=== PATIENT | female | born 1995 | race Two or more races ===

== ENCOUNTER 2020-07-15 03:13 | Emergency (ER) | payer OTHER ==
[~2020-07-15] VITALS: Ht 167.6 cm; Wt 81.6 kg
[2020-07-15] MEDS ORDERED: DiphenhydrAMINE 50mg/ml Inj IM ONE (03:30)
[2020-07-15] MEDS ORDERED: Haloperidol 5mg/ml Inj IM ONE (03:30)
[2020-07-15] MEDS ORDERED: LORazepam Inj 2mg/ml 1ml IM ONE (03:30)
--- NOTE | 2020-07-15 03:35 | NUR ---
ED Nurse Note: Recieved pt BIBA from home, here with c/o etoh intoxication with increased anxiety and agitation, pt is on gurney awake and alert, yelling and screaming very loud, restless and agitated on gurney, unable to appropriately answer questions, strong etoh odor noted on breath, pt is too agitated for IV line placement or labs, MD aware, will medicate pt IM and return when pt more calm for labs, etc.
--- NOTE | 2020-07-15 04:25 | NUR ---
ED Nurse Note: Returned from break, meds given effective, pt sleeping, IV line placed and labs drawn, pt straight cath for urine specimen, will continue to closely monitor, pt sleeping.
[2020-07-15 05:22] LABS: EOSINOPHILS % (AUTO) 0.1 % (0.0-3.0); HEMATOCRIT 41.7 % (37.0-47.0); HEMOGLOBIN 13.4 G/DL (12.0-16.0); LYMPHOCYTES % (AUTO) 25.9 % (20.0-45.0); MEAN CORPUSCULAR VOLUME 94 FL (80-99); MONOCYTES % (AUTO) 6.9 % (1.0-10.0); NEUTROPHILS % (AUTO) 66.1 % (45.0-75.0); PLATELET COUNT 245 K/UL (150-450); RED BLOOD COUNT 4.43 M/UL (4.20-5.40); RED CELL DISTRIBUTION WIDTH 12.8 % (11.6-14.8); WHITE BLOOD COUNT 7.1 K/UL (4.8-10.8)
[2020-07-15 05:43] LABS: APPEARANCE,URINE CLEAR; BILIRUBIN, URINE NEGATIVE (NEGATIVE); COLOR,URINE PALE YELLOW; GLUCOSE, URINE (UA) NEGATIVE (NEGATIVE); KETONES,URINE NEGATIVE (NEGATIVE); LEUKOCYTE ESTERASE ,URINE NEGATIVE (NEGATIVE); NITRITE,URINE NEGATIVE (NEGATIVE); PH,URINE 7 (4.5-8.0); PROTEIN,URINE NEGATIVE (NEGATIVE); UROBILINOGEN,URINE NORMAL MG/DL (0.0-1.0)
[2020-07-15 05:44] LABS: ANION GAP 11 mmol/L (5-15); BLOOD UREA NITROGEN 5 mg/dL (7-18); CALCIUM 8.5 MG/DL (8.5-10.1); CARBON DIOXIDE 24 MMOL/L (21-32); CHLORIDE 110 MMOL/L (98-107); CREATININE 0.8 MG/DL (0.55-1.30); POTASSIUM 3.5 MMOL/L (3.5-5.1); SODIUM 145 MMOL/L (136-145)
--- NOTE | 2020-07-15 05:46 | Emergency Room Report ---
History of Present Illness General Chief Complaint: Alcohol Intoxication Source: Patient Present Illness HPI 25-year-old female brought in by PD not on a hold for aggressive behavior after drinking heavily this evening. According to EMS, patient was agitated and running naked around the house and arguing with her boyfriend. She denies any SI, HI, auditory or visual hallucinations. She denies trauma, headache, neck pain, back pain, or other symptoms. Denies coingestants She is uncooperative with examination. History is limited secondary to altered mental status. The patient's symptoms were gradual onset, severity was moderate, duration since 1 day. Past medical history: Denies Past surgical history: Denies Smoking: Denies Alcohol use: ++ Drug use: Denies Review of systems: CONST: No fevers or chills, No night sweats PULMONARY: No productive cough, No shortness of breath CARDIAC: No chest pain, No palpitations GI: No vomiting, No diarrhea , No melena_or_BRBPR : No dysuria, No hematuria, No discharge NEURO: No new_focal_weakness_or_numbness, No confusion, No vision changes 14 point Review of Systems is otherwise negative except per HPI Physical Exam: GENERAL: Awake_alert_ nontoxic, Spo2 97% on RA -normal. Agitated, screaming profanities in bed. EYES: Extraocular muscles are intact. Conjunctivae clear. Lids without swelling ENT: External nose and ear normal_in_appearance. Oropharynx clear. Head _atraumatic, Moist_oral_mucosa no oropharyngeal trauma NECK: No JVD. No meningismus. No thyromegaly. Supple. Trachea midline no cervical, thoracic, or lumbar step-offs RESP: Normal respiratory effort. Symmetric rise. No stridor. Clear_to_auscultation_No_rales_No_wheezes CARDIAC: Tachycardic rate and regular rhytm. No_significant pedal edema. ABDOMEN: Soft. Nondistended. Nontender_No_rebound_or_guarding. MSK: Normal muscle tone, without rigidity. Extremities without asymmetric deformity or swelling. SKIN: Warm and dry. No visible cyanosis or pallor NEUROLOGIC: Alert, oriented x3. Motor_and_sensation_grossly_intact. No truncal ataxia. Gait_normal Psych: Normal mood and affect, normal judgment and insight - COORDINATION OF CARE Case was discussed with: Patient Any labs and imaging that were ordered were interpreted as part of the medical decision making: Medical Decision Making/Plan: Differential diagnosis includes psychosis, delusions, paranoid schizophrenia, drug abuse, drug intoxication, drug overdose, among others. The patient denies any suicide attempt, overdose, or ingestion. Initially upon arrival, patient was agitated, screaming profanities, and a danger to staff. For this reason she was chemically sedated. They exhibit no signs of any toxic syndrome or drug / alcohol withdrawal. Labs were ordered for evaluation, and results are reassuring with no evidence of occult overdose, or severe metabolic derangement. The patient was observed for a period of time in the ED with serial neurologic exams. Allergies: Coded Allergies: No Known Allergies (Unverified , 07/15/20) COVID-19 Screening Contact w/high risk pt: No Experienced COVID-19 symptoms?: No COVID-19 Testing performed DIRECTOR OF DIRECT MARKETING: No Nursing Documentation-PMH History Of Psychiatric Problem: Yes Physical Exam Vital Signs Date Time Temp Pulse Resp B/P (MAP) Pulse Ox O2 Delivery O2 Flow Rate FiO2 07/15/20 03:01 98.4 110 20 130/98 (109) 97 Room Air Sp02 EP Interpretation: reviewed, normal Medical Decision Making Diagnostic Impression: Primary Impression: Acute alcoholic intoxication EKG Diagnostic Results Troponin ordered: No Rhythm Strip Diag. Results Rhythm Strip Time: 05:45 EP Interpretation: yes Rate: 100 Rhythm: NSR, no PVC's, no ectopy Reevaluation Time: 05:45 Last Vital Signs Date Time Temp Pulse Resp B/P (MAP) Pulse Ox O2 Delivery O2 Flow Rate FiO2 07/15/20 04:02 110 20 130/98 97 07/15/20 03:40 Room Air 07/15/20 03:01 98.4 Status: improved Admit Decision Time: 06:00 Signed Out To: Dr Graves pending sobriety Referrals: NOT CHOSEN [facility]/,REFERRING (PCP) Radha Holly D.O. Jul 15, 2020 05:46
[2020-07-15 05:57] LABS: ALANINE AMINOTRANSFERASE 14 U/L (12-78); ALBUMIN 4.2 G/DL (3.4-5.0); ALBUMIN/GLOBULIN RATIO 1.1 (1.0-2.7); ALKALINE PHOSPHATASE 84 U/L (46-116); ASPARTATE AMINO TRANSFERASE 17 U/L (15-37); BILIRUBIN,TOTAL 0.2 MG/DL (0.2-1.0)
--- NOTE | 2020-07-15 06:55 | Emergency Room Report ---
Physical Exam Vital Signs Date Time Temp Pulse Resp B/P (MAP) Pulse Ox O2 Delivery O2 Flow Rate FiO2 07/15/20 03:01 98.4 110 20 130/98 (109) 97 Room Air Medical Decision Making Diagnostic Impression: Primary Impression: Acute alcoholic intoxication ER Course Assumed care of the patient from the previous provider at approximately 0600. Please refer to initial note for full history and physical exam. Briefly, 25-year-old female brought in for agitation and alcohol intoxication. Alcohol level 300. Other labs within normal limits. She required sedation on arrival for agitation and is currently resting comfortably. CT scan of the head was performed does not show evidence of intracranial injury, mass or other abnormalities. Patient will be discharged once clinically sober. 0950: Patient is awake and alert. Has called for a ride to take her home. Stable for outpatient follow-up. CT/MRI/US Diagnostic Results CT/MRI/US Diagnostic Results : Impression CT HEAD IMPRESSION: No acute intracranial hemorrhage, midline shift, or mass effect. Dictated By: Mike Young M.D. Electronically Signed By:Mike Young M.D. Signed Date/Time07/15/20 0724 CC: Radha Holly D.O. Last Vital Signs Date Time Temp Pulse Resp B/P (MAP) Pulse Ox O2 Delivery O2 Flow Rate FiO2 07/15/20 04:02 110 20 130/98 97 07/15/20 03:40 Room Air 07/15/20 03:01 98.4 Disposition: HOME, SELF-CARE Condition: Stable Referrals: NOT CHOSEN [facility]/,REFERRING (PCP) [facility], [facility] Patient Instructions: Alcohol Intoxication Additional Instructions: In the future, refrain from drinking excess amounts of alcohol as it can be hazardous to your health and even fatal. If you need help with drug or alcohol abuse contact one of the resources listed here in your discharge paperwork. Return to the emergency department with any new or worsening symptoms. Santiago Graves MD Jul 15, 2020 06:55
--- NOTE | 2020-07-15 07:24 | Diagnostic Imaging Report ---
EXAM: CT Head Without Intravenous Contrast CLINICAL HISTORY: AMS TECHNIQUE: Axial computed tomography images of the head/brain without intravenous contrast. CTDI is 53.4 mGy and DLP is 1045.5 mGy-cm. One or more of the following dose reduction techniques were used: automated exposure control, adjustment of the mA and/or kV according to patient size, use of iterative reconstruction technique. COMPARISON: No relevant prior studies available. FINDINGS: No acute intracranial hemorrhage. No midline shift or mass effect. The territorial merino-white matter differentiation is maintained throughout. The ventricles and sulci are commensurate with age. The visualized orbits appear grossly unremarkable. The calvarium is intact. The visualized paranasal sinuses and mastoid air cells are grossly clear. IMPRESSION: No acute intracranial hemorrhage, midline shift, or mass effect.
[2020-07-15 08:01] VITALS: BP 130/98
--- NOTE | 2020-07-15 08:02 | NUR ---
ED Nurse Note:pt. is still sleepy , will try to wake her up and have her picked up by family
[2020-07-15] MEDS ORDERED: Thiamine 100mg tab ORAL SCH (09:00)
[2020-07-15 09:22] VITALS: BP 121/87
[2020-07-15 10:05] VITALS: BP 121/87
--- NOTE | 2020-07-15 10:05 | NUR ---
ER DISCHARGE NOTE:pt's friend came to pick her up, Patient is cleared to be discharged per ERMD, pt is aox4, on room air, with stable vital signs. pt was given dc and prescription instructions, pt was able to verbalize understanding, pt id band and iv site removed without complications. pt is able to ambulate with steady gait. pt took all belongings.
== END 2020-07-15 10:05 | disposition home or self-care (01) ==
LOC: EDBD 03:13 → EMR 03:34
DX: F10.129 Alcohol abuse with intoxication, unspecified (principal); Y90.7 Blood alcohol level of 200-239 mg/100 ml
CPT/HCPCS: 36415; 70450; 80053; 80307; 81003; 84443; 84702; 85025; 96372; 99284; G0480; J1200; J1630